=== PATIENT | female | born 1970 | race Caucasian/White ===

== ENCOUNTER 2019-05-11 12:02 | Inpatient (IN) | payer BC ==
[~2019-05-11] VITALS: Ht 162.6 cm; Wt 83.5 kg
--- NOTE | 2019-05-11 12:15 | PHYS DOC ---
Adult General Chief Complaint Chief Complaint: CHEST PAIN HPI HPI Patient is a 48-year-old female who presents via EMS with report of chest pain that started at about 8:30 this morning. Patient states that initially it felt like she was having some heartburn and so took an antacid without any improvement. She states that later on the pain got much worse and states that it felt like she had swallowed a dog bone and that was stuck in her chest, radiating across her entire chest. She states that that time it was about an 8 out of 10. She would see her doctor at the doctor's office and they transferred patient to emergency room for further evaluation. Currently patient rates her pain to be a 4 out of 10. She does admit to some mild diaphoresis when the chest pain and gotten worse but no nausea or vomiting.[] Review of Systems Review of Systems Constitutional: Denies fever or chills [] Respiratory: Denies cough or shortness of breath [] Cardiovascular: No additional information not addressed in HPI [] GI: Denies abdominal pain, nausea, vomiting or diarrhea [] Integument: Denies rash or skin lesions [] Neurologic: Denies headache, focal weakness or sensory changes [] All other systems were reviewed and found to be within normal limits, except as documented in this note. Physical Exam Physical Exam Constitutional: Well developed, well nourished, no acute distress, non-toxic appearance. [] HENT: Normocephalic, atraumatic, bilateral external ears normal, oropharynx moist, no oral exudates, nose normal. [] Eyes: PERRLA, EOMI, conjunctiva normal, no discharge. [] Neck: Normal range of motion, no tenderness, supple, no stridor. [] Cardiovascular:Heart rate regular rhythm, no murmur [] Lungs & Thorax: Bilateral breath sounds clear to auscultation [] Abdomen: Bowel sounds normal, soft, no tenderness. [] Skin: Warm, dry, no erythema, no rash. [] Extremities: No tenderness, no cyanosis, no clubbing, ROM intact, no edema. [] Neurologic: Alert and oriented X 3, no focal deficits noted. [] EKG EKG EKG demonstrates normal sinus rhythm with rate of 92.[] Radiology/Procedures Radiology/Procedures [] Impressions: PROCEDURE: PORTABLE CHEST 1V EXAM: Chest, single view. HISTORY: Chest pain. COMPARISON: None. FINDINGS: A frontal view of the chest is obtained. There is no infiltrate, pleural effusion or pneumothorax. The heart is normal in size. There are incidental suspected prominent degenerative subchondral cysts involving the humeral heads. The possibility of a component of superimposed avascular necrosis is not excluded on the [id number]. IMPRESSION: No acute pulmonary finding. Electronically signed by: Gisella Leonard MD (05/11/2019 12:41 PM) [facility] PROCEDURE: CT ANGIOGRAPHY CHEST CT ANGIOGRAPHY CHEST Indication: Possible pulmonary embolism. Technique: After intravenous contrast administration, CT imaging was performed of the chest. MIP reconstructions were obtained. Exposure: One or more of the following individualized dose reduction techniques were utilized for this examination: 1. Automated exposure control 2. Adjustment of the mA and/or kV according to patient size 3. Use of iterative reconstruction technique. Comparison: None FINDINGS: No evidence of pulmonary embolism. No evidence of aortic aneurysm or dissection. Proximal great vessels are patent. Thyroid is unremarkable. No significant lymph node enlargement is identified. No pericardial effusion. No pleural effusion. Noncalcified nodule in the left upper lobe, marginating the major fissure measures 4 mm. Series 4, image 49. Small right upper lobe nodule measures 3 mm, series 4, image 49. No consolidating airspace infiltrate. Trachea and mainstem bronchi are patent. Scans to the upper abdomen are limited by technique but demonstrate no definite acute abnormality. Small accessory splenule is noted. Degenerative spondylosis. IMPRESSION: 1. No evidence of pulmonary embolism. 2. Small bilateral pulmonary nodules, largest measuring 4 mm. As per revised Fleischner guidelines, no routine follow-up is necessary if patient is low risk, but if high risk recommend follow-up CT chest in 12 months. Electronically signed by: Janak Brody MD (05/11/2019 2:07 PM) [facility] Course & Med Decision Making Course & Med Decision Making Pertinent Labs and Imaging studies reviewed. (See chart for details) [] Dragon Disclaimer Dragon Disclaimer This electronic medical record was generated, in whole or in part, using a voice recognition dictation system. Departure Departure: Impression: Primary Impression: Chest pain Disposition: ADMITTED INPATIENT Admitting Physician: Andrew Mares Condition: IMPROVED Problem Qualifiers Primary Impression: Chest pain Chest pain type: unspecified Qualified Codes: R07.9 - Chest pain, unspecified CEJA,BAKARI D Jr. DO May 11, 2019 12:15
--- NOTE | 2019-05-11 12:25 | EKG ---
[address] [address] Test Date: 2019-05-11 Test Time: 12:10:15 Pat Name: YOUSUF GILBERT Department: Room: Gender: F [employer]: : 1970 Requested By: BAKARI CEJA Order Number: [id number] Reading MD: Radu Arceo MD Measurements Intervals [place] Rate: 92 P: 26 NC: 148 QRS: 10 QRSD: 68 T: 46 QT: 356 QTc: 445 Interpretive Statements SINUS RHYTHM Electronically Signed On 05-18-2019 11:33:41 CDT by Radu Arceo MD
[2019-05-11 12:35] LABS: BASO # 0.2 x10^3/uL (0.0-0.2); BASO % 1 % (0-3); EOS # 0.1 x10^3/uL (0.0-0.7); EOS % 1 % (0-3); HEMATOCRIT 46.6 % (36.0-47.0); HEMOGLOBIN 16.2 g/dL (12.0-15.5); LYMPH % 28 % (24-48); MEAN CORPUSCULAR HEMOGLOBIN 33 pg (25-35); MEAN CORPUSCULAR HGB CONC 35 g/dL (31-37); MEAN CORPUSCULAR VOLUME 96 fL (79-100); MONO # 0.7 x10^3/uL (0.0-1.1); MONO % 6 % (0-9); NEUT # 6.9 x10^3uL (1.8-7.7); NEUT % 63 % (31-73); PLATELET COUNT 280 x10^3/uL (140-400); RED BLOOD COUNT 4.88 x10^6/uL (3.50-5.40); RED CELL DISTRIBUTION WIDTH 12.8 % (11.5-14.5); WHITE BLOOD COUNT 10.9 x10^3/uL (4.0-11.0)
[2019-05-11 12:43] LABS: ALBUMIN 4.1 g/dL (3.4-5.0); ALBUMIN/GLOBULIN RATIO 1.1 (1.0-1.7); CALCIUM 9.9 mg/dL (8.5-10.1); CREATININE 0.9 mg/dL (0.6-1.0); GFR 67.4; MAGNESIUM 1.9 mg/dL (1.8-2.4); POTASSIUM 3.8 mmol/L (3.5-5.1); TOTAL BILIRUBIN 0.7 mg/dL (0.2-1.0)
--- NOTE | 2019-05-11 12:44 | RAD ---
EXAM: Chest, single view. HISTORY: Chest pain. COMPARISON: None. FINDINGS: A frontal view of the chest is obtained. There is no infiltrate, pleural effusion or pneumothorax. The heart is normal in size. There are incidental suspected prominent degenerative subchondral cysts involving the humeral heads. The possibility of a component of superimposed avascular necrosis is not excluded on the [id number]. IMPRESSION: No acute pulmonary finding. Electronically signed by: Gisella Leonard MD (05/11/2019 12:41 PM) [place] [id number]
[2019-05-11] MEDS ORDERED: IOHEXOL 350 MG/ML 100 ML VIAL. IV ONE (13:45)
--- NOTE | 2019-05-11 14:09 | RAD ---
CT ANGIOGRAPHY CHEST Indication: Possible pulmonary embolism. Technique: After intravenous contrast administration, CT imaging was performed of the chest. MIP reconstructions were obtained. Exposure: One or more of the following individualized dose reduction techniques were utilized for this examination: 1. Automated exposure control 2. Adjustment of the mA and/or kV according to patient size 3. Use of iterative reconstruction technique. Comparison: None FINDINGS: No evidence of pulmonary embolism. No evidence of aortic aneurysm or dissection. Proximal great vessels are patent. Thyroid is unremarkable. No significant lymph node enlargement is identified. No pericardial effusion. No pleural effusion. Noncalcified nodule in the left upper lobe, marginating the major fissure measures 4 mm. Series 4, image 49. Small right upper lobe nodule measures 3 mm, series 4, image 49. No consolidating airspace infiltrate. Trachea and mainstem bronchi are patent. Scans to the upper abdomen are limited by technique but demonstrate no definite acute abnormality. Small accessory splenule is noted. Degenerative spondylosis. IMPRESSION: 1. No evidence of pulmonary embolism. 2. Small bilateral pulmonary nodules, largest measuring 4 mm. As per revised Fleischner guidelines, no routine follow-up is necessary if patient is low risk, but if high risk recommend follow-up CT chest in 12 months. Electronically signed by: Janak Brody MD (05/11/2019 2:07 PM) [facility]
[2019-05-11 14:58] LABS: BACTERIA,URINE 0 /HPF (0-FEW); BILIRUBIN,URINE NEG (NEG); CLARITY,URINE CLEAR; COLOR,URINE YELLOW; GLUCOSE,URINE NEG (NEG); NITRITE,URINE NEG (NEG); RBC,URINE OCC /HPF (0-2); SQUAMOUS EPITHELIAL CELL,UR OCC /LPF; UROBILINOGEN,URINE 0.2 mg/dL (0.2 mg/dL); WBC,URINE OCC /HPF (0-4)
[2019-05-11] MEDS ORDERED: ONDANSETRON PF 4 MG/2 ML VIAL. IV PRN (15:30)
[2019-05-11] MEDS ORDERED: MORPHINE SULFATE 2 MG/ML DISP.SYRIN. IV PRN (15:30)
[2019-05-11] MEDS ORDERED: ZOLPIDEM 5 MG TABLET. PO PRN (17:45)
[2019-05-11] MEDS ORDERED: ACETAMINOPHEN 500 MG TABLET PO PRN (17:45)
[2019-05-11] MEDS ORDERED: CONTRAST GIVEN MC PRN (18:00)
[2019-05-11 18:36] VITALS: BP 155/88
[2019-05-11] MEDS: METOPROLOL TART IMMED RELEASE 25 MG TABLET PO SCH (20:44)
[2019-05-11 23:59] VITALS: BP 156/70
[2019-05-12 06:09] VITALS: BP 127/73
--- NOTE | 2019-05-12 08:44 | PDOC2 ---
CARDIAC CONSULT DATE OF CONSULT Date Of Consult DATE: 05/12/19 TIME: 08:40 REASON FOR CONSULT Reason for Consult Chest pain REFERRING PHYSICIAN Referring Physician Dr. Otoole SOURCE Source: Chart review, Patient HPI History of Present Illness This is a 48 yo female who presented secondary to chest pain. Patient reports pain began yesterday morning around 8:30. Was getting ready for work. Pain was located across he central chest. [place] as if a "bone was lodged in my chest". Was non radiating. [place] short of breath as she felt like she couldn't take a deep breath. No dizziness, diaphoresis, palpitations, or nausea/vomiting. Improved by applying pressure to her central chest. Took an antacid, but did not improved the pain. Went to PCP office, who referred her to the ED for further evaluation and treatment. Does reports significantly increased stressor in life presently, wondering if this could have been a panic attack. PAST MEDICAL HISTORY GI: GERD Psych: Anxiety PAST SURGICAL HISTORY Past Surgical History: Other (right rotator cuff repair) FAMILY HISTORY Family History: Hypertension, Stroke (mother ) SOCIAL HISTORY Smoke: 1 pack per day ALCOHOL: occassional Drugs: Marijuana Lives: with Family CURRENT MEDICATIONS Current Medications Current Medications Iohexol (Omnipaque 350 Mg/ml) 100 ml 1X ONCE IV Last administered on 05/11/19at 14:04; Start 05/11/19 at 13:45; Stop 05/11/19 at 13:46; Status DC Ondansetron HCl (Zofran) 4 mg PRN Q4HRS PRN IV NAUSEA/VOMITING; Start 05/11/19 at 15:30; Stop 05/12/19 at 15:29 Morphine Sulfate (Morphine 2mg Syringe) 2 mg PRN Q2HR PRN IV PAIN; Start 05/11/19 at 15:30; Stop 05/12/19 at 15:29 Zolpidem Tartrate (Ambien) 5 mg PRN QHS PRN PO INSOMNIA, MAY REPEAT IN 1HR Last administered on 05/11/19at 20:44; Start 05/11/19 at 17:45 Acetaminophen (Tylenol) 500 mg PRN Q6HRS PRN PO PAIN / TEMP; Start 05/11/19 at 17:45 Metoprolol Tartrate (Lopressor) 25 mg BID PO Last administered on 05/11/19at 20:44; Start 05/11/19 at 21:00 Triamterene/HCTZ (Maxzide 37.5/ 25mg) 1 tab DAILY PO ; Start 05/12/19 at 09:00 Info (Do NOT chart on this entry -- for MONITORING) 1 each PRN DAILY PRN MC SEE COMMENTS; Start 05/11/19 at 18:00; Stop 05/13/19 at 17:59 Info (FLU VACCINE per PROTOCOL) 1 ea PRN 1X PRN MC PER PROTOCOL; Start 05/12/19 at 09:00; Status UNV Influenza Virus Vaccine Quadrival (Afluria Quad 2019-20 (3yr Up) Syringe) 0.5 ml ONCE ONCE VAX IM ; Start 05/12/19 at 09:00; Stop 05/12/19 at 09:01 Active Scripts Active Reported No Known Medications Prior To Admisstion (Info) Each 1 Each MC 1X 1 Days ALLERGIES Allergies: Coded Allergies: No Known Drug Allergies (Unverified , 05/11/19) ROS Review of Systems 14 point ROS conducted with pertinent positives noted above in HPI. PHYSICAL EXAM General: Alert, Oriented X3, Cooperative, No acute distress HEENT: Atraumatic Lungs: Clear to auscultation, Normal air movement Heart: Regular rate, Normal S1, Normal S2, No murmurs Abdomen: Soft, No tenderness Extremities: No edema, Normal pulses Skin: No breakdown Neuro: Normal speech, Sensation intact Psych/Mental Status: Mental status NL, Mood NL MUSCULOSKELETAL: Osteoarthritic changes both hands VITALS Vital Signs Vital Signs Date Time Temp Pulse Resp B/P (MAP) Pulse Ox O2 Delivery O2 Flow Rate FiO2 05/12/19 06:09 97.8 69 18 127/73 (91) 94 Room Air LABS LABS Laboratory Tests Test 05/11/19 12:19 05/11/19 14:25 05/11/19 14:29 05/11/19 22:05 White Blood Count 10.9 x10^3/uL (4.0-11.0) Red Blood Count 4.88 x10^6/uL (3.50-5.40) Hemoglobin 16.2 g/dL (12.0-15.5) Hematocrit 46.6 % (36.0-47.0) Mean Corpuscular Volume 96 fL (79-100) Mean Corpuscular Hemoglobin 33 pg (25-35) Mean Corpuscular Hemoglobin Concent 35 g/dL (31-37) Red Cell Distribution Width 12.8 % (11.5-14.5) Platelet Count 280 x10^3/uL (140-400) Neutrophils (%) (Auto) 63 % (31-73) Lymphocytes (%) (Auto) 28 % (24-48) Monocytes (%) (Auto) 6 % (0-9) Eosinophils (%) (Auto) 1 % (0-3) Basophils (%) (Auto) 1 % (0-3) Neutrophils # (Auto) 6.9 x10^3uL (1.8-7.7) Lymphocytes # (Auto) 3.0 x10^3/uL (1.0-4.8) Monocytes # (Auto) 0.7 x10^3/uL (0.0-1.1) Eosinophils # (Auto) 0.1 x10^3/uL (0.0-0.7) Basophils # (Auto) 0.2 x10^3/uL (0.0-0.2) D-Dimer (Annita) 1.12 mg/L (0.00-0.50) Sodium Level 139 mmol/L (136-145) Potassium Level 3.8 mmol/L (3.5-5.1) Chloride Level 104 mmol/L (98-107) Carbon Dioxide Level 22 mmol/L (21-32) Anion Gap 13 (6-14) Blood Urea Nitrogen 12 mg/dL (7-20) Creatinine 0.9 mg/dL (0.6-1.0) Estimated GFR (Cockcroft-Gault) 67.4 BUN/Creatinine Ratio 13 (6-20) Glucose Level 126 mg/dL (70-99) Calcium Level 9.9 mg/dL (8.5-10.1) Magnesium Level 1.9 mg/dL (1.8-2.4) Total Bilirubin 0.7 mg/dL (0.2-1.0) Aspartate Amino Transf (AST/SGOT) 21 U/L (15-37) Alanine Aminotransferase (ALT/SGPT) 33 U/L (14-59) Alkaline Phosphatase 60 U/L (46-116) Troponin I Quantitative < 0.017 ng/mL (0-0.055) < 0.017 ng/mL (0-0.055) Total Protein 8.0 g/dL (6.4-8.2) Albumin 4.1 g/dL (3.4-5.0) Albumin/Globulin Ratio 1.1 (1.0-1.7) Lipase 127 U/L (73-393) Urine Collection Type Unknown Urine Color Yellow Urine Clarity Clear Urine pH 7.0 Urine Specific [place] 1.015 Urine Protein Neg (NEG-TRACE) Urine Glucose (UA) Neg mg/dL (NEG) Urine Ketones (Stick) Trace mg/dL (NEG) Urine Blood Small (NEG) Urine Nitrite Neg (NEG) Urine Bilirubin Neg (NEG) Urine Urobilinogen Dipstick 0.2 mg/dL (0.2 mg/dL) Urine Leukocyte Esterase Neg (NEG) Urine RBC Occ /HPF (0-2) Urine WBC Occ /HPF (0-4) Urine Squamous Epithelial Cells Occ /LPF Urine Bacteria 0 /HPF (0-FEW) Urine Mucus Slight /LPF Bedside Urine HCG, Qualitative hcg negative (Negative) ASSESSMENT/PLAN Assessment/Plan 1. Chest pain, atypical. AMI ruled out. Anxiety component? 2. GERD 3. Hypertension; metoprolol and Maxzide added 4. Anxiety; reports significant increased stressors recently 5. Elevated d-dimer; CTA negative for PE 6. Tobacco and marijuana use; discussed/encouraged cessation Recommendations Echo to assess LV systolic function Lipids If echo WNL, may discharge from a CV standpoint Outpatient BP monitoring Will arrange for outpatient treadmill MPI. JUAN DE GUZMAN APRN May 12, 2019 08:43
[2019-05-12] MEDS ORDERED: FLU VAX QS 2019-20 (36MOS+)/PF 0.5 ML SYRINGE. VAX IM ONE (09:00)
[2019-05-12] MEDS ORDERED: TRIAMTERENE/HCTZ 37.5/25MG TABLET. PO SCH (09:00)
[2019-05-12] MEDS ORDERED: Influenza vaccine per PROTOCOL. MC PRN (09:00)
[2019-05-12 09:05] VITALS: BP 127/73
[2019-05-12] MEDS: METOPROLOL TART IMMED RELEASE 25 MG TABLET PO SCH (09:05)
[2019-05-12] MEDS ORDERED: TRIA1TAB3 PO (10:05)
[2019-05-12] MEDS ORDERED: NITR0.4T22 SL (10:05)
[2019-05-12] MEDS ORDERED: METO25TA4 PO (10:05)
[2019-05-12] MEDS ORDERED: ASPI-630 PO (10:06)
[2019-05-13 07:09] LABS: HEMOGLOBIN A1C 5.4 % (4.8-5.6)
== END 2019-05-12 11:00 | disposition home or self-care (01) | DRG 392 ==
LOC: ER 12:02 → 1 SOUTH 16:07
PROVIDERS: ADMIT Family Medicine; ATTEND Family Medicine
DX: K21.9 Gastro-esophageal reflux disease without esophagitis (principal); R07.89 Other chest pain; F41.9 Anxiety disorder, unspecified; F12.90 Cannabis use, unspecified, uncomplicated; F17.210 Nicotine dependence, cigarettes, uncomplicated; I10 Essential (primary) hypertension; Z82.3 Family history of stroke; Z82.49 Family history of ischemic heart disease and other diseases of the circulatory system; Z79.899 Other long term (current) drug therapy; Z71.6 Tobacco abuse counseling
CPT/HCPCS: 36415; 71045; 71275; 80053; 80061; 81001; 81025; 83036; 83690; 83735; 84484; 85025; 85379; 90471; 90686; 93005; Q9967; 99285-25

== ENCOUNTER 2019-09-21 09:26 | Emergency (ER) | payer BC ==
[~2019-09-21] VITALS: Ht 162.6 cm; Wt 84.0 kg
[~2019-09-21 09:26] MED LIST: ASPI-630 PO; METO25TA4 PO; NITR0.4T22 SL; TRIA1TAB3 PO
[2019-09-21] MEDS ORDERED: IV NORMAL SALINE 1,000ML 1,000 ML IV SCH (09:58)
--- NOTE | 2019-09-21 10:03 | PHYS DOC ---
Past History Past Medical History: Anxiety, GERD, Hypertension Past Surgical History: Other Additional Past Surgical Histo: rotator cap surgery Alcohol Use: None Drug Use: None Adult General Chief Complaint Chief Complaint: DEHYDRATION HPI HPI Patient is a 48-year-old female who presented to ER today for evaluation due to dehydration. Patient was diagnosed with influenza A about 10 days ago, she finished a five-day course of Tamiflu. Patient started having diarrhea since. Patient feels weak and dehydrated. Patient continued have cough with yellow sputum. Patient went back to see her doctor on last Friday, her doctor put her on Augmentin. Patient had been on Augmentin for the last 4 days. Patient was getting ready to go to work today but she does not not feel well so she came here for evaluation. Patient denies any headache, no fever, no abdominal pain. Review of Systems Review of Systems Constitutional: Denies fever or chills. POSITIVE FOR GENERALIZED WEAKNESS. Eyes: Denies change in visual acuity, redness, or eye pain [] HENT: Denies nasal congestion or sore throat [] Respiratory: Denies cough or shortness of breath [] Cardiovascular: No additional information not addressed in HPI [] GI: Denies abdominal pain, nausea, vomiting, bloody stools, positive for diarrhea [] : Denies dysuria or hematuria [] Musculoskeletal: Denies back pain or joint pain Integument: Denies rash or skin lesions [] Neurologic: Denies headache, focal weakness or sensory changes [] Endocrine: Denies polyuria or polydipsia [] All other systems were reviewed and found to be within normal limits, except as documented in this note. Allergies Allergies Allergies Coded Allergies Type Severity Reaction Last Updated Verified No Known Drug Allergies 05/11/19 No Physical Exam Physical Exam Constitutional: Well developed, well nourished, no acute distress, non-toxic appearance. [] HENT: Normocephalic, atraumatic, bilateral external ears normal, oropharynx moist, no oral exudates, nose normal. [] Eyes: PERRLA, EOMI, conjunctiva normal, no discharge. [] Neck: Normal range of motion, no tenderness, supple, no stridor. [] Cardiovascular:Heart rate regular rhythm, no murmur [] Lungs & Thorax: Bilateral breath sounds clear to auscultation [] Abdomen: Bowel sounds normal, soft, no tenderness, no masses, no pulsatile masses. [] Skin: Warm, dry, no erythema, no rash. [] Back: No tenderness, no CVA tenderness. [] Extremities: No tenderness, no cyanosis, no clubbing, ROM intact, no edema. [] Neurologic: Alert and oriented X 3, normal motor function, normal sensory function, no focal deficits noted. [] Psychologic: Affect normal, judgement normal, mood normal. [] EKG EKG [] Radiology/Procedures Radiology/Procedures [][address] [address] IMAGING REPORT Signed PATIENT: YOUSUF GILBERT LACCOUNT: [id number] : 1970 LOCATION: ER AGE: 48 SEX: F EXAM STATUS: REG ER ORD. PHYSICIAN: JAYCE DE SANTIAGO DO REASON: cough PROCEDURE: CHEST PA & LATERAL Chest, PA and Lateral: Technique: PA and lateral views of the chest were obtained. History: Cough. Comparison: 05/11/2019. Findings: The heart and pulmonary vasculature appear within normal limits. The lungs are clear. The pleural margins are clear. Impression: No acute chest process is seen. Electronically signed by: Kenny Bernabe MD (09/21/2019 10:22 AM) [id number] DICTATED AND SIGNED BY: KENNY BERNABE MD DATE: 09/21/19 1022 CC: JAYCE FORBES MD; JAYCE DE SANTIAGO DO ~ Course & Med Decision Making Course & Med Decision Making Pertinent Labs and Imaging studies reviewed. (See chart for details) Patient is a 48-year-old female who IS just recovering from having influenza virus. sHe was found to be dehydrated, she was given a liter normal saline in the ER, she felt much better. Patient was discharged home. Dragon Disclaimer Dragon Disclaimer This electronic medical record was generated, in whole or in part, using a voice recognition dictation system. Departure Departure: Impression: Primary Impression: Dehydration Disposition: 01 HOME, SELF-CARE Condition: IMPROVED Referrals: JAYCE FORBES MD (PCP) follow up with your doctor as needed Patient Instructions: Dehydration, Adult Additional Instructions: Thank you for visiting our Emergency Department. We appreciate you trusting us with your care. If any additional problems come up don't hesitate to return to visit us. Please follow up with your primary care provider so they can plan additional care if needed and know about the problem that you had. If symptoms worsen come back to the Emergency Department. Any concerning symptoms that start such as chest pain, shortness of air, weakness or numbness on one side of the body, running high fevers or any other concerning symptoms return to the ER. JAYCE DE SANTIAGO DO Sep 21, 2019 10:03
--- NOTE | 2019-09-21 10:25 | RAD ---
Chest, PA and Lateral: Technique: PA and lateral views of the chest were obtained. History: Cough. Comparison: 05/11/2019. Findings: The heart and pulmonary vasculature appear within normal limits. The lungs are clear. The pleural margins are clear. Impression: No acute chest process is seen. Electronically signed by: Kenny Villeda MD (09/21/2019 10:22 AM) [id number]
[2019-09-21 10:27] LABS: BASO # 0.1 x10^3/uL (0.0-0.2); BASO % 1 % (0-3); EOS # 0.2 x10^3/uL (0.0-0.7); EOS % 2 % (0-3); HEMATOCRIT 50.9 % (36.0-47.0); LYMPH # 3.3 x10^3/uL (1.0-4.8); LYMPH % 23 % (24-48); MEAN CORPUSCULAR HEMOGLOBIN 32 pg (25-35); MEAN CORPUSCULAR HGB CONC 33 g/dL (31-37); MEAN CORPUSCULAR VOLUME 95 fL (79-100); MONO # 1.2 x10^3/uL (0.0-1.1); MONO % 9 % (0-9); NEUT # 9.3 x10^3uL (1.8-7.7); NEUT % 66 % (31-73); PLATELET COUNT 331 x10^3/uL (140-400); RED BLOOD COUNT 5.33 x10^6/uL (3.50-5.40); RED CELL DISTRIBUTION WIDTH 12.7 % (11.5-14.5); WHITE BLOOD COUNT 14.1 x10^3/uL (4.0-11.0)
[2019-09-21 10:40] LABS: CALCIUM 8.8 mg/dL (8.5-10.1); CREATININE 0.9 mg/dL (0.6-1.0); GFR 67.4; POTASSIUM 3.8 mmol/L (3.5-5.1)
[2019-09-21 10:47] LABS: ALBUMIN 3.9 g/dL (3.4-5.0); MAGNESIUM 1.9 mg/dL (1.8-2.4); TOTAL BILIRUBIN 0.6 mg/dL (0.2-1.0); TOTAL PROTEIN 7.7 g/dL (6.4-8.2)
[2019-09-21 12:18] VITALS: BP 126/68
[2019-09-21 13:09] LABS: BILIRUBIN,URINE NEG (NEG); CLARITY,URINE CLEAR; COLOR,URINE YELLOW; GLUCOSE,URINE NEG (NEG)
[2019-09-21 13:10] LABS: BACTERIA,URINE 0 /HPF (0-FEW); NITRITE,URINE NEG (NEG); RBC,URINE 0 /HPF (0-2); SQUAMOUS EPITHELIAL CELL,UR FEW /LPF; UROBILINOGEN,URINE 0.2 mg/dL (0.2 mg/dL); WBC,URINE 0 /HPF (0-4)
== END 2019-09-21 13:05 | disposition home or self-care (01) ==
LOC: ER 09:26
DX: E86.0 Dehydration (principal); K21.9 Gastro-esophageal reflux disease without esophagitis; I10 Essential (primary) hypertension
CPT/HCPCS: 36415; 71046; 80053; 81001; 83735; 85025; 96360; 99284; J7030